=== PATIENT | female | born 1995 | race Hispanic/Latino ===

== ENCOUNTER 2018-07-23 19:01 | Emergency (ER) | payer MEDICAID, OTHER ==
[2018-07-23] MEDS ORDERED: LIDOCAINE HCL-MPF 1% 2ML VIAL ONE (19:52)
[2018-07-23] MEDS ORDERED: CEFTRIAXONE SODIUM 1 GM ONE (19:52)
== END 2018-07-23 20:02 | disposition home or self-care (01) ==
LOC: EDH 19:01
DX: J02.9 Acute pharyngitis, unspecified (principal)
CPT/HCPCS: 96372; 99283; J0696; J3490

== ENCOUNTER 2018-09-22 18:41 | Emergency (ER) | payer OTHER ==
[2018-09-22] MEDS ORDERED: ONDANSETRON ODT 4 MG TAB ONE (19:12)
[2018-09-22] MEDS ORDERED: ACETAMINOPHEN EXTRA STRENGTH 500 MG TABLET ONE (19:28)
[2018-09-22 19:41] LABS: RAPID GROUP A STREP POSITIVE (NEGATIVE)
[2018-09-22] MEDS ORDERED: LIDOCAINE HCL-MPF 1% 2ML VIAL ONE (20:00)
[2018-09-22] MEDS ORDERED: CEFTRIAXONE SODIUM 1 GM ONE (20:00)
[2018-09-22] MEDS ORDERED: IBUPROFEN 400 MG TABLET ONE (20:37)
== END 2018-09-22 20:56 | disposition home or self-care (01) ==
LOC: EDH 18:41
DX: J03.00 Acute streptococcal tonsillitis, unspecified (principal); R11.2 Nausea with vomiting, unspecified
CPT/HCPCS: 87804 ×2; 87880; 96372; 99284; J0696; J3490

== ENCOUNTER 2019-08-04 14:47 | Emergency (ER) | payer OTHER ==
[2019-08-04 15:23] LABS: BASOPHILS % (AUTO) 0.5 % (0.0-5.0); EOSINOPHILS % (AUTO) 0.6 % (0.0-8.0); LYMPHOCYTES % (AUTO) 27.5 % (21.0-51.0); MEAN CORPUSCULAR HEMOGLOBIN 31.2 pg (27.0-33.0); MEAN CORPUSCULAR HGB CONC 34.2 g/dL (32.0-36.0); MEAN CORPUSCULAR VOLUME 91.1 fL (79-99); MONOCYTES % (AUTO) 8.1 % (3.0-13.0); NEUTROPHILS % (AUTO) 63.1 % (40.0-77.0); PLATELET COUNT (AUTO) 279 K/uL (130-400); RED BLOOD CELL COUNT(AUTO) 4.17 MIL/uL (4.00-5.50); WHITE BLOOD COUNT (AUTO) 9.7 K/uL (4.8-10.8)
[2019-08-04 15:33] LABS: CREATININE 0.8 mg/dL (0.5-1.5); POTASSIUM 3.8 mmol/L (3.5-5.1)
[2019-08-04 15:49] LABS: APPEARANCE,URINE Clear (CLEAR); BILIRUBIN,URINE Negative (NEGATIVE); COLOR,URINE Dark Yellow (YELLOW); GLUCOSE, URINE (UA) Negative (NEGATIVE); KETONES,URINE Trace mg/dL (NEGATIVE); LEUKOCYTE ESTERASE ,URINE Trace (NEGATIVE); NITRATE,URINE Negative (NEGATIVE); OCCULT BLOOD,URINE Negative (NEGATIVE); PH,URINE 5.5 (5.0-8.0); PROTEIN,URINE Negative (NEGATIVE)
[2019-08-04 15:58] LABS: BACTERIA,URINE Rare /HPF (None Seen); MUCUS,URINE Few LPF (None Seen); RBC,URINE 0-1 /HPF (0-1); SQUAMOUS EPITHELIAL CELL,UR Few /HPF (0-2)
[2019-08-04 16:06] LABS: BILIRUBIN,TOTAL 0.4 mg/dL (0.2-1.0); TOTAL PROTEIN, SERUM 7.3 g/dL (6.0-8.3)
== END 2019-08-04 17:07 | disposition home or self-care (01) ==
LOC: EDH 14:47
DX: O20.0 Threatened abortion (principal); Z3A.01 Less than 8 weeks gestation of pregnancy; Z87.891 Personal history of nicotine dependence
CPT/HCPCS: 36415; 76801; 80053; 81001; 84702; 85025; 86900; 86901

== ENCOUNTER 2020-01-24 22:08 | Emergency (ER) | payer MEDICAID, OTHER ==
[2020-01-24] MEDS ORDERED: ONDANSETRON HCL 4 MG/2 ML VIAL ONE (22:18)
[2020-01-24 22:35] LABS: BASOPHILS % (AUTO) 0.1 % (0.0-5.0); MEAN CORPUSCULAR HEMOGLOBIN 30.7 pg (27.0-33.0); MEAN CORPUSCULAR HGB CONC 33.9 g/dL (32.0-36.0); MEAN CORPUSCULAR VOLUME 90.5 fL (79-99); MONOCYTES % (AUTO) 3.5 % (3.0-13.0); NEUTROPHILS % (AUTO) 84.1 % (40.0-77.0); PLATELET COUNT (AUTO) 280 K/uL (130-400); RED BLOOD CELL COUNT(AUTO) 4.53 MIL/uL (4.00-5.50); RED CELL DISTRIBUTION WIDTH 12.8 % (11.0-15.5); WHITE BLOOD COUNT (AUTO) 9.2 K/uL (4.8-10.8)
[2020-01-24 22:36] LABS: BILIRUBIN,URINE Negative (NEGATIVE); COLOR,URINE Dark Yellow (YELLOW); GLUCOSE, URINE (UA) Negative (NEGATIVE); KETONES,URINE 15 mg/dL (NEGATIVE); LEUKOCYTE ESTERASE ,URINE Trace (NEGATIVE); NITRATE,URINE Negative (NEGATIVE); OCCULT BLOOD,URINE Moderate (NEGATIVE); PROTEIN,URINE Negative (NEGATIVE)
[2020-01-24 22:37] LABS: HCG,QUAL RESULT NEGATIVE (NEGATIVE)
[2020-01-24 22:38] LABS: APPEARANCE,URINE CLEAR (CLEAR)
[2020-01-24 22:43] LABS: AMPHET/METH SCREEN,URINE NEGATIVE (NEGATIVE); BARBITURATE SCREEN, URINE NEGATIVE (NEGATIVE); BENZODIAZEPINES SCREEN,URINE NEGATIVE (NEGATIVE); CANNABINOID SCREEN,URINE NEGATIVE (NEGATIVE); COCAINE SCREEN,URINE NEGATIVE (NEGATIVE); OPIATE SCREEN,URINE NEGATIVE (NEGATIVE); PHENCYCLIDINE SCREEN,URINE NEGATIVE (NEGATIVE)
[2020-01-24 22:45] LABS: CREATININE 0.7 mg/dL (0.5-1.5); POTASSIUM 3.5 mmol/L (3.5-5.1)
[2020-01-24 22:49] LABS: ALBUMIN 3.9 g/dL (3.5-5.0); BILIRUBIN,TOTAL 0.6 mg/dL (0.2-1.0); TOTAL PROTEIN, SERUM 7.7 g/dL (6.0-8.3)
[2020-01-24 22:54] LABS: BACTERIA,URINE Few /HPF (None Seen)
[2020-01-24] MEDS ORDERED: KETOROLAC TROMETHAMINE 15MG/ML ONE (23:03)
[2020-01-24] MEDS ORDERED: FAMOTIDINE/PF 20 MG/2 ML VIAL IV ONE (23:04)
[2020-01-24] MEDS ORDERED: HYOSCYAMINE SULFATE 0.125 MG TAB.SUBL SL ONE (23:29)
== END 2020-01-25 01:15 | disposition home or self-care (01) ==
LOC: EDH 22:08
DX: R11.10 Vomiting, unspecified (principal)
CPT/HCPCS: 36415; 80053; 80305; 81001; 81025; 83690; 85025; 96361; 96374; 96375; 99284; J1885; J2405; J3490

== ENCOUNTER 2020-11-14 17:48 | Observation (INO) | payer MEDICAID ==
[~2020-11-14] VITALS: Ht 160 cm; Wt 74.8 kg
[2020-11-14 17:49] VITALS: BP 107/56
[2020-11-14 18:25] LABS: APPEARANCE,URINE Clear (CLEAR); BILIRUBIN,URINE Negative (NEGATIVE); COLOR,URINE Yellow (YELLOW); GLUCOSE, URINE (UA) Negative (NEGATIVE); KETONES,URINE Negative (NEGATIVE); LEUKOCYTE ESTERASE ,URINE Negative (NEGATIVE); NITRATE,URINE Negative (NEGATIVE); OCCULT BLOOD,URINE Negative (NEGATIVE); PH,URINE 6.5 (5.0-8.0); PROTEIN,URINE Negative (NEGATIVE); UROBILINOGEN,URINE 0.2 mg/dL (0.2-1.0)
[2020-11-14 18:32] LABS: AMPHET/METH SCREEN,URINE NEGATIVE (NEGATIVE); BARBITURATE SCREEN, URINE NEGATIVE (NEGATIVE); BENZODIAZEPINES SCREEN,URINE NEGATIVE (NEGATIVE); CANNABINOID SCREEN,URINE NEGATIVE (NEGATIVE); COCAINE SCREEN,URINE NEGATIVE (NEGATIVE); OPIATE SCREEN,URINE NEGATIVE (NEGATIVE); PHENCYCLIDINE SCREEN,URINE NEGATIVE (NEGATIVE)
== END 2020-11-14 21:00 | disposition home or self-care (01) ==
LOC: EDH 17:48 → LDH 17:49
PROVIDERS: ADMIT Obstetrics & Gynecology; ATTEND Obstetrics & Gynecology
DX: O21.2 Late vomiting of pregnancy (principal); O62.9 Abnormality of forces of labor, unspecified; O26.892 Other specified pregnancy related conditions, second trimester; R10.2 Pelvic and perineal pain; Z3A.26 26 weeks gestation of pregnancy; Z79.899 Other long term (current) drug therapy
CPT/HCPCS: 59025; 80305; 81003; G0378 ×3

== ENCOUNTER 2020-12-14 13:22 | Inpatient (IN) | payer MEDICAID ==
[~2020-12-14] VITALS: Ht 160 cm; Wt 78.0 kg
[2020-12-14 13:24] VITALS: BP 121/82
[2020-12-14] MEDS ORDERED: MAGNESIUM 4GM PREMIX 100ML 100 ML IV ONE (13:57)
[2020-12-14] MEDS ORDERED: MAGNESIUM SULFATE 40GM/1000ML 1,000 ML IV ONE (13:58)
[2020-12-14] MEDS ORDERED: CELESTONE SOLUSPAN 6 MG/ML 5ML VIAL ONE (13:58)
[2020-12-14] MEDS ORDERED: AMPICILLIN 2GM+NS 100ML 100 ML IV ONE (13:58)
[2020-12-14 14:18] LABS: HEMATOCRIT 35.9 % (36-48); MEAN CORPUSCULAR HEMOGLOBIN 31.2 pg (27.0-33.0); MEAN CORPUSCULAR HGB CONC 34.5 g/dL (32.0-36.0); MEAN CORPUSCULAR VOLUME 90.4 fL (79-99); RED BLOOD CELL COUNT(AUTO) 3.97 MIL/uL (4.00-5.50); WHITE BLOOD COUNT (AUTO) 10.5 K/uL (4.8-10.8)
[2020-12-14 14:20] LABS: APPEARANCE,URINE Clear (CLEAR); BILIRUBIN,URINE Negative (NEGATIVE); COLOR,URINE Yellow (YELLOW); GLUCOSE, URINE (UA) Negative (NEGATIVE); KETONES,URINE Trace mg/dL (NEGATIVE); LEUKOCYTE ESTERASE ,URINE Negative (NEGATIVE); NITRATE,URINE Negative (NEGATIVE); OCCULT BLOOD,URINE Negative (NEGATIVE); PROTEIN,URINE Negative (NEGATIVE)
[2020-12-14 14:27] LABS: AMPHET/METH SCREEN,URINE NEGATIVE (NEGATIVE); BARBITURATE SCREEN, URINE NEGATIVE (NEGATIVE); BENZODIAZEPINES SCREEN,URINE NEGATIVE (NEGATIVE); CANNABINOID SCREEN,URINE NEGATIVE (NEGATIVE); COCAINE SCREEN,URINE NEGATIVE (NEGATIVE); OPIATE SCREEN,URINE NEGATIVE (NEGATIVE); PHENCYCLIDINE SCREEN,URINE NEGATIVE (NEGATIVE)
[2020-12-14] MEDS ORDERED: CELESTONE SOLUSPAN 6 MG/ML 5ML VIAL IM SCH (14:30)
[2020-12-14] MEDS ORDERED: MAGNESIUM SULFATE 40GM/1000ML 1,000 ML IV SCH (14:30)
[2020-12-14] MEDS ORDERED: MAGNESIUM 4GM PREMIX 100ML 100 ML IV SCH (14:30)
[2020-12-14] MEDS ORDERED: AMPICILLIN 2GM+NS 100ML 100 ML IV SCH (14:30)
[2020-12-14] MEDS ORDERED: MEPERIDINE-PF 50 MG/ML SYG IVP PRN (14:30)
[2020-12-14] MEDS ORDERED: PROMETHAZINE HCL 25 MG/ML 1ML AMPULE IM PRN (14:30)
[2020-12-14] MEDS ORDERED: CALCIUM GLUC 1GM VIAL IV PRN (14:30)
[2020-12-14] MEDS ORDERED: LACTATED RINGERS 1000ML 1,000 ML IV PRN (14:30)
[2020-12-14] MEDS ORDERED: PORACTANT ALFA 240 MG/3 ML VIAL IH ONE (15:24)
[2020-12-14] MEDS: OXYTOCIN-LR 20 UNITS/1000 ML 1,000 ML IV SCH ×2 (15:30→15:37)
[2020-12-14] MEDS ORDERED: OXYTOCIN-LR 20 UNITS/1000 ML 1,000 ML IV SCH (16:00)
[2020-12-14] MEDS ORDERED: DIPH,PERTUSS(ACELL),TET VAC/PF 0.5 ML VIAL IM PRN (16:00)
[2020-12-14] MEDS ORDERED: METHYLERGONOVINE MALEATE 0.2 MG/1 ML ML IM SCH (16:00)
[2020-12-14] MEDS ORDERED: WITCH HAZEL 1 PAD TP PRN (16:00)
[2020-12-14] MEDS ORDERED: LANOLIN 30GM OINTMENT TP PRN (16:00)
[2020-12-14] MEDS ORDERED: ACETAMINOPHEN WITH CODEINE 1 TAB TAB PO PRN (16:00)
[2020-12-14] MEDS ORDERED: ACETAMINOPHEN 325 MG TAB PO PRN (16:00)
[2020-12-14] MEDS ORDERED: MEASLES/MUMPS/RUBELLA VACCINE, LIVE 0.5 ML/VIAL SQ PRN (16:00)
[2020-12-14] MEDS ORDERED: BENZOCAINE/LANOLIN/ALOE VERA 60 ML AEROSOL TP PRN (16:00)
[2020-12-14] MEDS: IBUPROFEN 600 MG TABLET PO PRN (16:55)
[2020-12-14 18:20] VITALS: BP 117/77
[2020-12-14] MEDS ORDERED: AMPICILLIN 1GM+NS 50ML 50 ML IV SCH (18:30)
[2020-12-14] MEDS ORDERED: PREN1TAB63 PO (19:57)
[2020-12-14 20:30] VITALS: BP 113/76
[2020-12-14] MEDS: DOCUSATE SODIUM 100 MG CAP PO SCH (20:37)
[2020-12-14 22:55] VITALS: BP 120/78
[2020-12-15] MEDS: IBUPROFEN 600 MG TABLET PO PRN ×2 (01:29→08:48)
[2020-12-15 03:09] VITALS: BP 107/65
[2020-12-15 06:29] LABS: MEAN CORPUSCULAR HEMOGLOBIN 30.4 pg (27.0-33.0); MEAN CORPUSCULAR HGB CONC 33.2 g/dL (32.0-36.0); MEAN CORPUSCULAR VOLUME 91.4 fL (79-99); RED BLOOD CELL COUNT(AUTO) 3.72 MIL/uL (4.00-5.50); RED CELL DISTRIBUTION WIDTH 12.9 % (11.0-15.5); WHITE BLOOD COUNT (AUTO) 21.4 K/uL (4.8-10.8)
[2020-12-15 07:33] VITALS: BP 124/82
[2020-12-15] MEDS: DOCUSATE SODIUM 100 MG CAP PO SCH (08:47)
[2020-12-15 09:28] LABS: RAPID PLASMA REAGIN NONREACTIVE (NONREACTIVE)
[2020-12-15 11:25] VITALS: BP 108/53
[2020-12-16 07:15] LABS: HEPATITIS Bs ANTIGEN SCREEN P Negative (Negative)
== END 2020-12-15 14:25 | disposition home or self-care (01) | DRG 560 ==
LOC: EDH 13:22 → LDH 13:23 → OBSVTOIN 13:23 → WSH 17:39
PROVIDERS: ADMIT Internal Medicine; ATTEND Internal Medicine
PROC: 10E0XZZ Delivery of Products of Conception, External Approach (ICD-10-PCS; principal; 2020-12-14)
PROC: 3E0234Z Introduction of Serum, Toxoid and Vaccine into Muscle, Percutaneous Approach (ICD-10-PCS; 2020-12-14)
PROC: 3E0134Z Introduction of Serum, Toxoid and Vaccine into Subcutaneous Tissue, Percutaneous Approach (ICD-10-PCS; 2020-12-14)
DX: O45.93 Premature separation of placenta, unspecified, third trimester (principal); O60.14X0 Preterm labor third trimester with preterm delivery third trimester, not applicable or unspecified; Z37.0 Single live birth; Z3A.31 31 weeks gestation of pregnancy; Z23 Encounter for immunization
CPT/HCPCS: 36415; 76805; 80305; 81003; 83735; 85027; 86592; 86701; 86850; 86900; 86901; 87340; 87390; 88307; A4314; G0378; J0290; J0702; J2590; J3475

== ENCOUNTER 2021-11-06 17:50 | Emergency (ER) | payer MEDICAID ==
[~2021-11-06] VITALS: Ht 160 cm; Wt 86.2 kg
[~2021-11-06 17:50] MED LIST: PREN1TAB63 PO
[2021-11-06 18:17] LABS: APPEARANCE,URINE CLEAR (CLEAR); BILIRUBIN,URINE NEGATIVE (NEGATIVE); COLOR,URINE YELLOW (YELLOW); GLUCOSE, URINE (UA) NEGATIVE (NEGATIVE); KETONES,URINE NEGATIVE (NEGATIVE); LEUKOCYTE ESTERASE ,URINE NEGATIVE (NEGATIVE); NITRATE,URINE NEGATIVE (NEGATIVE); OCCULT BLOOD,URINE SMALL (NEGATIVE); PROTEIN,URINE NEGATIVE (NEGATIVE); UROBILINOGEN,URINE 0.2 mg/dL (0.2-1.0)
[2021-11-06 18:19] LABS: HCG,QUALITATIVE URINE NEGATIVE (NEGATIVE)
[2021-11-06 19:06] LABS: BACTERIA,URINE Rare /HPF (None Seen); MUCUS,URINE Few LPF (None Seen); SQUAMOUS EPITHELIAL CELL,UR Few /HPF (0-2); WBC,URINE 0-1 /HPF (0-1)
[2021-11-06] MEDS ORDERED: IBUP-2070 PO (20:07)
[2021-11-06] MEDS ORDERED: BENZ-39 PO (20:07)
[2021-11-06 20:11] VITALS: BP 136/89
== END 2021-11-06 20:19 | disposition home or self-care (01) ==
LOC: EDH 17:50
DX: U07.1 COVID-19 (principal)
CPT/HCPCS: 99283; 87635; 87880; 87804 ×2; 81001; 81025; C9803

== ENCOUNTER 2023-07-15 03:20 | Emergency (ER) | payer MEDICAID ==
[~2023-07-15] VITALS: Ht 160 cm; Wt 81.6 kg
[~2023-07-15 03:20] MED LIST changes: +BENZ-39 PO; +IBUP-2070 PO
[2023-07-15 03:52] LABS: SARS-CoV-2, RNA, NAAT NEGATIVE SARS CoV-2 (NEGATIVE)
[2023-07-15 03:56] LABS: INFLUENZA TYPE A Negative For Type A (NEGATIVE); INFLUENZA TYPE B Negative For Type B (NEGATIVE)
[2023-07-15 04:06] LABS: RAPID GROUP A STREP positive (NEGATIVE)
[2023-07-15 05:34] LABS: APPEARANCE,URINE CLEAR (CLEAR); BILIRUBIN,URINE NEGATIVE (NEGATIVE); COLOR,URINE LIGHT-YELLOW (YELLOW); GLUCOSE, URINE (UA) NEGATIVE (NEGATIVE); KETONES,URINE NEGATIVE (NEGATIVE); LEUKOCYTE ESTERASE ,URINE NEGATIVE Leu/uL (NEGATIVE); NITRATE,URINE NEGATIVE (NEGATIVE); OCCULT BLOOD,URINE LARGE (NEGATIVE); PROTEIN,URINE NEGATIVE (NEGATIVE)
[2023-07-15 05:36] LABS: ADD UA MICROSCOPIC YES; HCG,QUALITATIVE URINE NEGATIVE (NEGATIVE)
[2023-07-15 05:38] LABS: BACTERIA,URINE RARE /HPF (None Seen); MUCUS,URINE RARE LPF (None Seen); SQUAMOUS EPITHELIAL CELL,UR FEW /HPF (0-2)
[2023-07-15] MEDS ORDERED: AZIT250T9 PO (06:14)
[2023-07-15] MEDS: AZITHROMYCIN 250 MG TABLET PO ONE (06:18)
[2023-07-15] MEDS: KETOROLAC 60 MG VIAL (30MG/ML) IM ONE (06:19)
[2023-07-15] MEDS: SOLU-MEDROL 125MG VIAL IM ONE (06:19)
[2023-07-15 06:36] VITALS: BP 134/69; PULSE 72; RESP 16; O2SAT 100
== END 2023-07-15 06:52 | disposition home or self-care (01) ==
LOC: EDH 03:20
DX: J02.8 Acute pharyngitis due to other specified organisms (principal); B96.89 Other specified bacterial agents as the cause of diseases classified elsewhere; Z20.822 Contact with and (suspected) exposure to COVID-19
CPT/HCPCS: 99284; 87635; 87880; 87804 ×2; 81001; 81025; 96372 ×2; J2930; J1885

== ENCOUNTER 2023-09-25 23:38 | Emergency (ER) | payer MEDICAID ==
[~2023-09-25] VITALS: Ht 160 cm; Wt 85.3 kg
[~2023-09-25 23:38] MED LIST changes: +AZIT250T9 PO
[2023-09-26 00:02] LABS: APPEARANCE,URINE CLOUDY (CLEAR); BILIRUBIN,URINE NEGATIVE (NEGATIVE); COLOR,URINE YELLOW (YELLOW); GLUCOSE, URINE (UA) NEGATIVE (NEGATIVE); KETONES,URINE NEGATIVE (NEGATIVE); LEUKOCYTE ESTERASE ,URINE 250 Leu/uL (NEGATIVE); NITRATE,URINE NEGATIVE (NEGATIVE); OCCULT BLOOD,URINE LARGE (NEGATIVE); PH,URINE 5.5 (5.0-8.0); PROTEIN,URINE 10 mg/dL (NEGATIVE); UROBILINOGEN,URINE 0.2 mg/dL (0.2-1.0)
[2023-09-26 00:04] LABS: ADD UA MICROSCOPIC YES
[2023-09-26 00:17] LABS: SARS-CoV-2, RNA, NAAT NEGATIVE SARS CoV-2 (NEGATIVE)
[2023-09-26 00:17] LABS: BACTERIA,URINE MOD /HPF (None Seen); MUCUS,URINE RARE LPF (None Seen); SQUAMOUS EPITHELIAL CELL,UR MOD /HPF (0-2)
[2023-09-26 00:19] LABS: INFLUENZA TYPE A Negative For Type A (NEGATIVE); INFLUENZA TYPE B Negative For Type B (NEGATIVE)
[2023-09-26 00:49] LABS: RAPID GROUP A STREP positive (NEGATIVE)
[2023-09-26] MEDS ORDERED: BENZ-39 PO (00:56)
[2023-09-26] MEDS ORDERED: PENI500T2 PO (00:56)
[2023-09-26] MEDS: IBUPROFEN 600 MG TABLET PO ONE (01:02)
[2023-09-26 01:20] VITALS: BP 124/78; PULSE 94; RESP 16; O2SAT 99
== END 2023-09-26 01:22 | disposition home or self-care (01) ==
LOC: EDH 23:38
DX: J02.0 Streptococcal pharyngitis (principal); R50.9 Fever, unspecified; M79.18 Myalgia, other site; Z20.822 Contact with and (suspected) exposure to COVID-19; Z79.899 Other long term (current) drug therapy; Z98.890 Other specified postprocedural states
CPT/HCPCS: 81001; 81025; 87088; 87635; 87804; 87880